=== PATIENT | female | born 1965 | race Caucasian/White ===

== ENCOUNTER → 2018-07-30 | Outpatient (CLI) | payer BC, OTHER | END | disposition home or self-care (01) | LOC: CFH 10:47 | PROVIDERS: ATTEND Nurse Practitioner Family | DX: Z12.31 Encounter for screening mammogram for malignant neoplasm of breast (principal); R22.1 Localized swelling, mass and lump, neck | CPT/HCPCS: 70490; 77067 ==

== ENCOUNTER 2019-07-31 16:57 | Emergency (ER) | payer BC, OTHER ==
[~2019-07-31] VITALS: Ht 165.1 cm; Wt 80.5 kg
[2019-07-31] MEDS ORDERED: ONDANSETRON 2MG/ML, 2ML IVPush ONE (17:30)
[2019-07-31] MEDS ORDERED: HYDROmorphone 2 MG/ML, 1ML IVPush PRN (17:30)
[2019-07-31 17:32] LABS: BASOPHILS # (AUTO) 0.03 x10^3/uL (0-0.1); BASOPHILS % (AUTO) 1 % (0-1); EOSINOPHILS % (AUTO) 2 % (1-7); LYMPHOCYTES % (AUTO) 34 % (22-44); MD NO; MEAN CORPUSCULAR HEMOGLOBIN 31.3 pg (27.0-34.8); MEAN CORPUSCULAR HGB CONC 33.2 g/dL (32.4-35.8); MEAN CORPUSCULAR VOLUME 94.3 fL (80-100); MEAN PLATELET VOLUME 7.2 fL (7.4-10.4); MONOCYTES # (AUTO) 0.56 x10^3/uL (0.2-0.8); MONOCYTES % (AUTO) 9 % (2-9); NEUTROPHILS # (AUTO) 3.59 x10^3/uL (1.8-6.8); NEUTROPHILS % (AUTO) 55 % (42-75); PLATELET COUNT 237 x10^3/uL (130-400); RED BLOOD COUNT 5.25 x10^6/uL (3.82-5.3); RED CELL DISTRIBUTION WIDTH 13.2 % (9.6-15.2)
[2019-07-31] MEDS ORDERED: HYDROmorphone 1 MG/ML, 1ML INJ ONE (17:33)
[2019-07-31] MEDS ORDERED: ONDANSETRON 2MG/ML, 2ML ONE (17:33)
[2019-07-31 17:42] LABS: ALANINE AMINOTRANSFERASE 31 U/L (12-78); ALBUMIN 3.6 g/dL (3.4-5.0); ANION GAP 8 mmol/L (5-15); CALCIUM 8.6 mg/dL (8.5-10.1); CHLORIDE 104 mmol/L (98-107); CREATININE 0.74 mg/dL (0.55-1.02)
[2019-07-31 17:45] LABS: ALKALINE PHOSPHATASE 122 U/L (45-117); BILIRUBIN,TOTAL 0.5 mg/dL (0.2-1.0); TOTAL PROTEIN 7.7 g/dL (6.4-8.2)
--- NOTE | 2019-07-31 18:02 | NUR ---
THIS TECH DID EKG
--- NOTE | 2019-07-31 18:06 | NUR ---
PT HAS CO ABDOMINAL PAIN FOR 2 WEEKS. RUQ. CO PAIN AFTER MEALS. WAS AT URGENT CARE AND WAS TOLD PROBABLE GALLBLADDER. SOME NAUSEA. NO VOMITING. PT AMBULATED TO BATHROOM FOR UA. STEADY GATE. PT NOT IN DISTRESS. DENIES CP OR SOB
[2019-07-31 18:09] LABS: MICROSCOPIC AUTO
--- NOTE | 2019-07-31 18:28 | NUR ---
Pt STATES PAIN RELIEF AT MEDICATION. DENIES NAUSEA. VSS. RESTING ON GURNEY. CALL LIGHT IN REACH.
--- NOTE | 2019-07-31 18:52 | NUR ---
REPORT TO ABELARDO
--- NOTE | 2019-07-31 18:52 | NUR ---
REPORT FROM EDILSON CORCORAN ASSUMING CARE OF PT AT THIS TIME
--- NOTE | 2019-07-31 19:20 | NUR ---
ALL RESULTS BACK CHART UP FOR RECHECK AT THIS TIME AWAITING FURTHER ORDERS
[2019-07-31 19:25] VITALS: BP 110/73
--- NOTE | 2019-07-31 19:44 | NUR ---
Patient/Caregiver given discharge instructions and they have confirmed that they understand the instructions. Patient ambulatory with steady gait. piv dc prior to pt leaving
== END 2019-07-31 19:46 | disposition home or self-care (01) ==
LOC: ED 19:09
DX: K85.90 Acute pancreatitis without necrosis or infection, unspecified (principal); N30.00 Acute cystitis without hematuria; R94.31 Abnormal electrocardiogram [ECG] [EKG]; E11.9 Type 2 diabetes mellitus without complications; Z87.891 Personal history of nicotine dependence
CPT/HCPCS: 36415; 76700; 80053; 81001; 83690; 85025; 87077; 87086; 93005; 96374; 96375; 99285; J1170; J2405; 87186